=== PATIENT | female | born 1970 | race Two or more races ===

== ENCOUNTER 2022-07-05 04:19 | Day surgery (SDC) | payer OTHER ==
[2022-07-01 16:02] VITALS: BMI 32.5
[2022-07-05] MEDS ORDERED: IBUPROFEN 800 MG/8 ML IJ IVPB PRN (09:41)
[2022-07-05] MEDS ORDERED: oxyCODONE HCL 5 MG TABLET PO PRN ×2 (09:41→12:42)
[2022-07-05] MEDS ORDERED: ONDANSETRON 4 MG/2 ML VIAL IVPUSH PRN (09:41)
[2022-07-05] MEDS ORDERED: IBUPROFEN 600 MG TABLET (FP) PO PRN (09:41)
[2022-07-05] MEDS ORDERED: ELECTROLYTE-148 SOLN 1,000 ML IV SCH (09:45)
[2022-07-05] MEDS ORDERED: MIDAZOLAM HCL 2 MG/2 ML SINGLE DOSE VIAL ONE (10:04)
[2022-07-05] MEDS ORDERED: PROPOFOL 20 ML ONE (11:18)
[2022-07-05] MEDS ORDERED: KETOROLAC TROMETHAMINE 30 MG/1 ML VIAL ONE (11:19)
[2022-07-05] MEDS ORDERED: DEXAMETHASONE SOD PHOSPHATE 4 MG/1 ML VIAL ONE (11:19)
[2022-07-05] MEDS ORDERED: LIDOCAINE HCL/PF 2% SDV 5ML VIAL ONE (11:19)
[2022-07-05] MEDS ORDERED: ONDANSETRON 4 MG/2 ML VIAL ONE (11:19)
[2022-07-05] MEDS ORDERED: ACETAMINOPHEN INJECTION 100 ML IVPB ONE (11:36)
[2022-07-05] MEDS ORDERED: ACETAMINOPHEN 1000 MG/100 ML BAG IVPB ONE (12:43)
[2022-07-05] MEDS ORDERED: LACTATED RINGERS SOLUTION 1,000 ML IV SCH (12:45)
[2022-07-05 13:29] VITALS: RESP 20
[2022-07-05] MEDS ORDERED: oxyCODONE HCL 5 MG TABLET ONE (13:32)
[2022-07-05] MEDS ORDERED: oxyCODONE HCL 5 MG TABLET PO ONE (13:35)
[2022-07-05 15:30] VITALS: BP 117/78; PULSE 72; TEMP 97
== END 2022-07-05 14:30 | disposition home or self-care (01) ==
LOC: JASU-SURG 04:19
PROVIDERS: ATTEND Obstetrics & Gynecology
PROC: 0UDB7ZX Extraction of Endometrium, Via Natural or Artificial Opening, Diagnostic (ICD-10-PCS; 2022-07-05)
PROC: 0UBC8ZX Excision of Cervix, Via Natural or Artificial Opening Endoscopic, Diagnostic (ICD-10-PCS; 2022-07-05)
PROC: 0U5B8ZZ Destruction of Endometrium, Via Natural or Artificial Opening Endoscopic (ICD-10-PCS; principal; 2022-07-05 10:00)
DX: N92.4 Excessive bleeding in the premenopausal period (principal); N84.1 Polyp of cervix uteri
CPT/HCPCS: 81025; 88305-TC; 94760